=== PATIENT | male | born 1935 | race Caucasian/White ===

== ENCOUNTER 2016-07-07 08:04 | Emergency (ER) | payer OTHER ==
--- NOTE | 2016-07-07 08:13 | ED Physician Documentation ---
General Adult - HISTORIAN Historian: patient, spouse - HPI Stated Complaint: Fall Chief Complaint: General Adult Onset: hours Timing: still present Severity: moderate Further Comments: yes (Pt is an 81 yo male with peripheral neuropathy who fell at home last night. Pt has a skin tear on his L arm and c/o L rib pain.) - ROS CONST: no problems EYES/ENT: none CVS/RESP: other (L rib pain) GI/: none MS/SKIN/LYMPH: other (skin tear L forearm) - PAST HX Past History: asthma, other (GERD, HLD) Allergies/Adverse Reactions: Allergies Allergy/AdvReac Type Severity Reaction Status Date / Time No Known Allergies Allergy Verified 07/07/16 08:10 Home Medications: Ambulatory Orders Medication Instructions Recorded Albuterol Sulfate [Proair 90 mcg IH Q4H PRN 07/07/16 Respiclick] Allopurinol [Zyloprim] 100 mg PO QD 07/07/16 Aspirin [Adult Low Dose Aspirin EC] 81 mg PO DAILY 07/07/16 Gabapentin [Neurontin] 300 mg PO TID 07/07/16 Multivit-Min/Iron Fum/Folic AC 1 tab PO DAILY 07/07/16 [[id number]-Qpxpjoxj Tablet] Nifedipine [Nifedipine ER] 30 mg PO DAILY 07/07/16 Omeprazole 20 mg PO DAILY 07/07/16 Simvastatin [Zocor] 40 mg PO HS 07/07/16 Spironolactone [Aldactone] 25 mg PO DAILY 07/07/16 - SOCIAL HX Smoking History: non-smoker Alcohol Use: occasionally - FAMILY HX Family History: No - VITAL SIGNS Vital Signs: Vital Signs Temp Pulse Resp BP Pulse Ox 98 F 78 18 169/90 96 07/07/16 08:05 07/07/16 08:05 07/07/16 08:05 07/07/16 08:05 07/07/16 08:05 - REVIEWED ASSESSMENTS Nursing Assessment Reviewed: Yes Vitals Reviewed: Yes Progress - Progress Progress: X-ray, L ribs and CXR: Impression: 1. No evidence of displaced left rib fracture. 2. Right lower lobe infiltrate versus atelectasis. 3. Hyperinflation and probable pulmonary hypertension. 4. Mild left basilar atelectasis. Skin tear L arm repaired with steri-strips. Dressing applied. Rx Tylenol # 3, 1-2 po q 4-6 h prn # 20. Tetanus utd. General Adult Physical Exam - PHYSICAL EXAM GENERAL APPEARANCE: mild distress EENT: eye inspection normal, pharynx normal NECK: normal inspection, supple RESPIRATORY: no resp distress, chest non-tender, breath sounds normal, other ( pain with palpation, L lower ribs) CVS: reg rate & rhythm BACK: normal inspection, no CVA tenderness SKIN: other (skin tear L arm) EXTREMITIES: non-tender, normal range of motion NEURO: oriented X3, motor nml, sensation nml Discharge Clincal Impression: Rib pain on left side, possible rib fracture Skin tear of left forearm without complication Qualifiers: Encounter type: initial encounter Qualified Code(s): S51.802A - Unspecified open wound of left forearm, initial encounter Referrals: Jayant Bernal [Primary Care Provider] - Home Medications: Ambulatory Orders Albuterol Sulfate [Proair Respiclick] 90 mcg IH Q4H PRN 07/07/16 Allopurinol [Zyloprim] 100 mg PO QD 07/07/16 Aspirin [Adult Low Dose Aspirin EC] 81 mg PO DAILY 07/07/16 Gabapentin [Neurontin] 300 mg PO TID 07/07/16 Multivit-Min/Iron Fum/Folic AC [[id number]-[id number]-Evvxyjji Tablet] 1 tab PO DAILY Nifedipine [Nifedipine ER] 30 mg PO DAILY 07/07/16 Omeprazole 20 mg PO DAILY 07/07/16 Simvastatin [Zocor] 40 mg PO HS 07/07/16 Spironolactone [Aldactone] 25 mg PO DAILY 07/07/16 Condition: Good Disposition: 01 HOME, SELF-CARE Decision to Admit: NO Decision Time: 08:57
[2016-07-07 09:11] VITALS: BP 150/58
--- NOTE | 2016-07-07 09:51 | Diagnostic Imaging Report ---
LANG JORDAN~ [facility] [address] [facility] [address] [place], [place]. [address] ~ ~ ~ ~ Report Submission Date: Jul 07, 2016 8:53:33 AM SUPPLY SPECIALIST Patient ~ Study Name: SUE YEAGER ~ Date: Jul 07, 2016 8:24:04 AM SUPPLY SPECIALIST ~ Modality Type: CR Gender: M ~ Description: CHEST : 31 ~ Institution: [facility] Physician: LANG JORDAN ~ ~ ~ ~ PA chest and left ribs History: Pain after fall Findings: Segmental right lower lobe infiltrate or atelectasis is observed. The lungs are hyperinflated. Central pulmonary artery enlargement and calcified granulomas are noted. Minimal atelectasis is present at the left lung base. There is no evidence of displaced left rib fracture or focal rib lesion. Heart size is normal. Impression: 1. No evidence of displaced left rib fracture. 2. Right lower lobe infiltrate versus atelectasis. 3. Hyperinflation and probable pulmonary hypertension. 4. Mild left basilar atelectasis. ~ Electronically signed on Jul 07, 2016 8:53:33 AM SUPPLY SPECIALIST by: Sue FORMAN
== END 2016-07-07 09:10 | disposition home or self-care (01) ==
LOC: ED 08:04
DX: S51.802A Unspecified open wound of left forearm, initial encounter (principal); W19.XXXA Unspecified fall, initial encounter; Y93.9 Activity, unspecified; Y99.9 Unspecified external cause status
CPT/HCPCS: 71101; 99283